=== PATIENT | female | born 1960 | race Caucasian/White ===

== ENCOUNTER 2024-12-04 08:06 | Outpatient (CLI) | payer BC ==
[2024-12-04 09:04] LABS: Estimated GFR - POC 72.0
[2024-12-04] MEDS ORDERED: Iopamidol 370 76% 100 ML VIAL ONE (13:11)
== END 2024-12-04 08:07 | disposition home or self-care (01) ==
LOC: CT 08:06
PROVIDERS: ATTEND Otolaryngology Otolaryngic Allergy
DX: E21.3 Hyperparathyroidism, unspecified (principal); E04.1 Nontoxic single thyroid nodule; D35.1 Benign neoplasm of parathyroid gland
CPT/HCPCS: 36415; 70492; 78072; 82565; A9500; Q9967